=== PATIENT | male | born 1970 | race Caucasian/White ===

== ENCOUNTER 2019-05-12 17:50 | Emergency (ER) | payer BC, SELFPAY ==
--- NOTE | 2019-05-12 18:00 | ED.URI ---
HPI - URI/Sore Throat General Chief Complaint: Upper Respiratory Infection Stated Complaint: sinus pressure/drainage/cough Time Seen by Provider: 05/12/19 18:15 Source: patient and RN notes reviewed Mode of arrival: ambulatory Limitations: no limitations History of Present Illness HPI Narrative: 48-year-old male presents with concern for sinusitis treatment failure. Reports chronic sinus problems for which he has had sinus surgery. He reports prior to sinus surgery he would have 9 sinus infections a year, after the sinus surgery he has 3-5 sinus infections a year. He reports history of difficult to treat sinus infections. Reports he has had approximately 2-month history of sinus drainage, congestion, pain, postnasal drainage. He finished a course of Augmentin and prednisone within the last 2 weeks. He reports symptoms improved on those medications but did not resolve. He reports new onset of low-grade fever. He reports cough that improved with prednisone but did not resolve. MD elicited complaint: cough and nasal congestion Related Data Home Medications Medication Instructions Recorded Confirmed cetirizine 10 mg tablet 10 mg PO DAILY 02/02/19 05/12/19 azelastine 1 spray INTRANASAL BID 05/12/19 05/12/19 fluticasone propionate 1 spray INTRANASAL DAILY 05/12/19 05/12/19 Allergies Allergy/AdvReac Type Severity Reaction Status Date / Time No Known Allergies Allergy Mild Verified 11/05/09 13:48 Review of Systems Review of Systems: Narrative: CONSTITUTIONAL: Reports malaise, low-grade fever. EYES: Denies visual changes, redness, or discharge. ENT: Reports rhinorrhea, congestion, sinus pain, postnasal drainage. Denies otalgia and sore throat. CARDIOVASCULAR: Denies chest pain, palpitations, or edema. RESPIRATORY: Reports cough. Denies dyspnea. GASTROINTESTINAL: Denies abdominal pain, nausea, vomiting, diarrhea SKIN: Denies rash or itching. MUSCULOSKELETAL: Denies myalgia. NEUROLOGIC: Reports headache. All systems reviewed & are unremarkable except as noted in HPI and below [facility] Family History Family History (Updated 11/11/09 @ 13:37 by DOCTOR UNKNOWN) Other Hypertension Social History Social History Smoking status: Never smoker Alcohol intake: current Gender identity (if verbalized by the patient): Male Comments At time of signature, agree with nursing past medical, surgical, social and family history. There is no relevant family history pertinent to the presenting complaint Exam Narrative: Exam Narrative: GENERAL: Well-appearing, well-nourished, and in no acute distress. HEAD: Normocephalic EYES: PERRLA, conjunctivae clear ENT: Nares clear, turbinates erythematous, purulent discharge, sinus tenderness. Mucous membranes moist. TM pearly zimmerman with dull light reflex bilaterally; no tragal tenderness. Oropharynx erythematous without lesions, postnasal drainage. Tonsils not enlarged and without exudate, no drooling, no hoarseness, no trismus, uvula midline. NECK: Supple. No lymphadenopathy CHEST: Clear to auscultation, breath sounds equal. No wheezing, rhonchi, rales, or stridor. No respiratory distress, speaks in full sentences. HEART: Regular rate and rhythm. No murmur heard. Normal peripheral pulses. SKIN: Warm, dry, no rash. NEURO: Alert and oriented x3. PSYCH: Normal mood and affect Course Course Emergency Course: Discussed with patient treatment options, discussed side effects of Levaquin. Discussed need for taper for ongoing dose of prednisone. Instructed patient to follow-up with his primary care provider or ENT if symptoms persist despite treatment. Patient is aware of diagnosis, understands and agrees to treatment plan. Anticipatory guidance given. Patient agrees to follow-up as directed and is aware of reasons to seek care at the emergency department. Portions of this record may have been created with voice recognition software Vital Signs Vital signs: Vital Signs Temperature 100.4 F H
[2019-05-12 18:05] VITALS: BP 150/99; PULSE 105; RESP 18; TEMP 38; O2SAT 100
== END 2019-05-12 18:30 | disposition home or self-care (01) ==
PROVIDERS: Emergency Provider Nurse Practitioner; PCP Family Medicine
DX: J01.91 Acute recurrent sinusitis, unspecified (principal)
CPT/HCPCS: 87804; 99213; G0463

== ENCOUNTER → 2020-04-16 06:47 | Outpatient (CLI) | payer BC, SELFPAY ==
[2020-04-17 00:18] LABS: SARS-CoV-2 RNA PCR Negative
== END ==
PROVIDERS: Nurse Practitioner Family; PCP Family Medicine; Visit Provider Family Medicine
DX: Z20.822 Contact with and (suspected) exposure to COVID-19 (principal); R68.89 Other general symptoms and signs
CPT/HCPCS: C9803; U0003; U0005

== ENCOUNTER → 2020-04-16 06:47 | Outpatient (CLI) | payer BC, SELFPAY ==
[2020-04-16 16:04] LABS: Influenza Control Positive
== END ==
PROVIDERS: PCP Family Medicine; Visit Provider Nurse Practitioner Family
DX: J06.9 Acute upper respiratory infection, unspecified (principal)
CPT/HCPCS: 87804

== ENCOUNTER 2021-04-03 00:54 | Day surgery (SDC) | payer BC, SELFPAY ==
[2021-03-22 12:54] VITALS: BMI 27.7
--- NOTE | 2021-03-31 12:58 | P.HP_ITS ---
History of Present Illness History of Present Illness Consent: Risks, benefits, and alternatives have been discussed and questions answered. Patient agrees to proceed with procedure. Chief complaint: neoplasm screening Narrative: Yovany Saunders is a 50 year old male referred for colon cancer screening Review of Systems Review of Systems: All systems reviewed & are unremarkable except as noted in HPI and below PMFSH Past Medical History Medical History Acute sinusitis, unspecified BMI 28.0-28.9,adult Dietary counseling and surveillance (08/16/16) Male erectile dysfunction, unspecified Plantar wart of left foot Screening for lipid disorders Surgical History Surgical History H/O sinus surgery Family History Family History Father Parkinson disease Dementia Mother Acute myocardial infarction Aortic dissection Sibling No problems noted. 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 Gender identity (if verbalized by the patient): Male Spiritual care concerns: No Meds Home Medications and Allergies Home Medications Medication Instructions Recorded Confirmed Type cetirizine 10 mg tablet 10 mg PO DAILY 02/02/19 04/03/21 History fluticasone propionate 1 spray INTRANASAL DAILY 05/12/19 04/03/21 History albuterol sulfate 90 mcg/actuation 1 inh INHALATION Q4H PRN #8 gm 04/15/20 04/03/21 Rx aerosol inhaler azelastine 137 mcg (0.1 %) nasal 1 spray INTRANASAL BID #30 ml 11/08/20 04/03/21 Rx spray aerosol budesonide 160 mcg-glycopyr 9 2 inh INHALATION QAM AND QPM #10.7 01/02/21 04/03/21 Rx mcg-formot 4.8 mcg/actuation HFA g inhaler montelukast 10 mg tablet 10 mg PO DAILY #30 tablet 01/25/21 04/03/21 Rx Allergies Allergy/AdvReac Type Severity Reaction Status Date / Time No Known Allergies Allergy Mild Verified 04/03/21 06:19 Exam Resp: Auscultation: clear to auscultation bilaterally Cardio: Rate: regular rate Rhythm: regular rhythm GI: GI Palp: Yes Soft to palpation and No Tenderness to palpation present (GI) Assessment and Plan Assessment and plan (1) Screening for colon cancer: Code(s): Z12.11 - Encounter for screening for malignant neoplasm of colon Status: Acute Assessment and Plan: Colonoscopy with possible biopsy or polypectomy or cautery or injection of substances.
[2021-04-03 06:20] VITALS: BP 142/93; PULSE 84; RESP 18; TEMP 36.8; O2SAT 98; BMI 27.8
[2021-04-03] MEDS: LACTATED RINGERS 1,000 ML 150 ML IV CONT (06:31)
--- NOTE | 2021-04-03 06:49 | WPDANESEPPF ---
Anes - Initial Pre Proc Eval Procedure: Operation Date: 04/03/21 07:30 Proposed Procedures p Screening Colonoscopy - Emir Arredondo MD Date/Time: 04/03/21 06:49 Surgeon: Emir Arredondo MD Pre Op Diagnosis: neoplasm screening Patient Data Age: 50 Gender: M Height: 1.85 m Weight: 95.8 kg Last Vital Signs Temp 36.8 C 04/03/21 06:20 Pulse 84 04/03/21 06:20 Resp 18 04/03/21 06:20 BP 142/93 H 04/03/21 06:20 Pulse Ox 98 04/03/21 06:20 Allergies Allergy/AdvReac Type Severity Reaction Status Date / Time No Known Allergies Allergy Mild Verified 04/03/21 06:19 Home Medications Medication Instructions Recorded Confirmed Type cetirizine 10 mg tablet 10 mg PO DAILY 02/02/19 04/03/21 History fluticasone propionate 1 spray INTRANASAL DAILY 05/12/19 04/03/21 History albuterol sulfate 90 mcg/actuation 1 inh INHALATION Q4H PRN #8 gm 04/15/20 04/03/21 Rx aerosol inhaler azelastine 137 mcg (0.1 %) nasal 1 spray INTRANASAL BID #30 ml 11/08/20 04/03/21 Rx spray aerosol budesonide 160 mcg-glycopyr 9 2 inh INHALATION QAM AND QPM #10.7 01/02/21 04/03/21 Rx mcg-formot 4.8 mcg/actuation HFA g inhaler montelukast 10 mg tablet 10 mg PO DAILY #30 tablet 01/25/21 04/03/21 Rx Patient hx anesthesia problems: none Family hx anesthesia problems: none Results Review: All pre-operative results and documents have been reviewed as part of the pre-operative evaluation. [facility] Past Medical History Medical History Acute sinusitis, unspecified BMI 28.0-28.9,adult Dietary counseling and surveillance (08/16/16) Male erectile dysfunction, unspecified Plantar wart of left foot Screening for lipid disorders Surgical History Surgical History (Updated 04/03/21 @ 06:50 by Rupert Esteves MD) H/O sinus surgery Family History Family History Father Parkinson disease Dementia Mother Acute myocardial infarction Aortic dissection Sibling No problems noted. 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 Informed Consent: The patient's anesthetic plan and its attendant risks and benefits were discussed with the patient/family/POA. Questions were solicited and answers provided to the satisfaction of the patient/family/POA.
[2021-04-03 07:43] VITALS: BP 119/68; PULSE 76; RESP 22; O2SAT 100
[2021-04-03 07:53] VITALS: BP 136/81; PULSE 76; RESP 26; O2SAT 100
[2021-04-03 08:03] VITALS: BP 134/84; PULSE 74; RESP 26; O2SAT 100
== END 2021-04-03 08:14 | disposition home or self-care (01) ==
PROVIDERS: PCP Family Medicine; Visit Provider Internal Medicine Gastroenterology
PROC: 0DJD8ZZ Inspection of Lower Intestinal Tract, Via Natural or Artificial Opening Endoscopic (ICD-10-PCS; CPT 45378; principal; 2021-04-03 07:30)
DX: Z12.11 Encounter for screening for malignant neoplasm of colon (principal); K57.30 Diverticulosis of large intestine without perforation or abscess without bleeding; Z79.51 Long term (current) use of inhaled steroids
CPT/HCPCS: 45378; J2704; J7120

== ENCOUNTER 2025-02-08 15:44 | Outpatient (CLI) | payer BC, SELFPAY ==
--- NOTE | ~2025-02-08 | XR_ITS ---
EXAMINATION: XR knee LT min 4V, 02/08/2025 15:49 SR COMMUNITY MANAGER HISTORY: M25.569 - Pain in unspecified knee COMPARISON: No comparisons available. Findings: No acute fracture or malalignment. No significant degenerative changes. Soft tissues unremarkable. Impression: No acute fracture or malalignment. Reviewed, dictated and finalized at location P. COMMUNITY MANAGER Impression: No acute fracture or malalignment.
--- NOTE | ~2025-02-08 | XR_ITS ---
EXAMINATION: XR knee RT min 4V, 02/08/2025 15:49 EARLY INTERVENTION SPECIALIST HISTORY: M25.569 - Pain in unspecified knee COMPARISON: No comparisons available. Findings: No acute fracture or malalignment. No significant degenerative changes. Soft tissues unremarkable. Impression: No acute fracture or malalignment. Reviewed, dictated and finalized at location P. Y INTERVENTION SPECIALIST Impression: No acute fracture or malalignment.
== END 2025-02-08 15:45 | disposition home or self-care (01) ==
LOC: MICIMG 15:48
PROVIDERS: PCP Family Medicine; Visit Provider Nurse Practitioner Family
DX: M25.561 Pain in right knee (principal); M25.462 Effusion, left knee
CPT/HCPCS: 73564